=== PATIENT | male | born 1945 | race Caucasian/White ===

== ENCOUNTER 2018-11-18 12:36 | Outpatient (CLI) | payer MEDICARE, OTHER ==
--- NOTE | 2018-11-18 15:00 | CT ---
CT THORACIC SPINE WITHOUT CONTRAST: HISTORY: Spondylosis. Pain. COMPARISON: None. FINDINGS: There is no acute fracture or malalignment of the thoracic spine. Multiple flowing anterior osteophy yesenia throughout the thoracic spine with minimal degenerative disk space change, suggesting diffuse idi opathic skeletal hyperostosis. No pars interarticularis defects. There is mild narrowing of the interspinous space in the mid thoracic spine. Some ossification along the interspinous ligament of T12-L1, which may be sequela of prior injury. The visualized aortic contour is nonaneurysmal. No retroperitoneal adenopathy. The transverse processes are intact. No significant neural foraminal or spinal canal narrowing throu ghout the thoracic spine. No acute fracture. No malalignment. IMPRESSION: 1. Mild spondylosis without fracture or malalignment. 2. Diffuse idiopathic skeletal hyperostosis. 3. Calcifications along the interspinous ligament, between T12-L1, may be sequela of prior injury. POS: [facility]
== END 2018-11-18 12:37 | disposition home or self-care (01) ==
LOC: BICCT 12:36
PROVIDERS: ATTEND Anesthesiology Pain Medicine
DX: M47.814 Spondylosis without myelopathy or radiculopathy, thoracic region (principal); M48.14 Ankylosing hyperostosis [Forestier], thoracic region; M51.84 Other intervertebral disc disorders, thoracic region
CPT/HCPCS: 72128

== ENCOUNTER 2022-11-07 06:15 | Day surgery (SDC) | payer MEDICARE, OTHER ==
[2022-11-05 15:56] VITALS: BMI 36.9
[2022-11-07] MEDS ORDERED: PROPOFOL 200 MG/20 ML VIAL ONE (08:32)
== END 2022-11-07 09:40 | disposition home or self-care (01) ==
LOC: SDC 06:15
PROVIDERS: ATTEND Internal Medicine Cardiovascular Disease
PROC: 5A2204Z Restoration of Cardiac Rhythm, Single (ICD-10-PCS; principal; 2022-11-07)
DX: I48.19 Other persistent atrial fibrillation (principal); I49.5 Sick sinus syndrome; I44.7 Left bundle-branch block, unspecified; I10 Essential (primary) hypertension; I25.10 Atherosclerotic heart disease of native coronary artery without angina pectoris; E03.9 Hypothyroidism, unspecified; G47.30 Sleep apnea, unspecified; I73.9 Peripheral vascular disease, unspecified; G89.29 Other chronic pain; M54.9 Dorsalgia, unspecified; M10.9 Gout, unspecified; Z86.73 Personal history of transient ischemic attack (TIA), and cerebral infarction without residual deficits; Z79.01 Long term (current) use of anticoagulants; Z79.82 Long term (current) use of aspirin; Z79.85 Long-term (current) use of injectable non-insulin antidiabetic drugs; Z79.899 Other long term (current) drug therapy; Z88.5 Allergy status to narcotic agent; Z88.8 Allergy status to other drugs, medicaments and biological substances; Z91.048 Other nonmedicinal substance allergy status; Z95.0 Presence of cardiac pacemaker; Z95.5 Presence of coronary angioplasty implant and graft
CPT/HCPCS: 92960; 93005; 93010; J2704